=== PATIENT | female | born 1970 | race Caucasian/White ===

== ENCOUNTER 2020-10-11 16:15 | Outpatient (CLI) | payer BC, SELFPAY ==
--- NOTE | ~2020-10-11 | MM_ITS ---
EXAMINATION: MM screening ashlee BI w ruy HISTORY: Screening TECHNIQUE: Craniocaudal and mediolateral oblique 3-D tomosynthesis images were obtained and synthetic 2-D images were generated. CAD analysis was submitted and interpreted. COMPARISON: No prior mammogram is available for comparison at this institution. BREAST PARENCHYMAL COMPOSITION: The breasts are heterogenously dense, which may obscure small masses. FINDINGS: There are bilateral breast asymmetries centrally in both breasts on CC views. No discrete m asses or suspicious calcifications. IMPRESSION: 1. Bilateral breast asymmetries. 2. Comparison to previous outside mammograms recommended to assess stability. BI-RADS Category 0: Incomplete: Needs additional imaging evaluation. Reviewed, dictated and finalized at location A. [employer]
== END 2020-10-11 16:16 | disposition home or self-care (01) ==
LOC: ANHIMG 16:21
PROVIDERS: PCP Physician Assistant; Visit Provider Nurse Practitioner Obstetrics & Gynecology
DX: Z12.31 Encounter for screening mammogram for malignant neoplasm of breast (principal); R92.8 Other abnormal and inconclusive findings on diagnostic imaging of breast
CPT/HCPCS: 77063; 77067

== ENCOUNTER 2020-11-13 13:48 | Outpatient (CLI) | payer BC, SELFPAY ==
--- NOTE | ~2020-11-13 | MMUS_ITS ---
EXAMINATION: MM diagnostic ashlee BI w ruy, US breast RT limited HISTORY: Bilateral breast asymmetries on screening mammogram TECHNIQUE: Additional 3-D tomosynthesis images of the breasts were performed and synthetic 2-D images were generated. CAD analysis was submitted and interpreted. High resolution limited right breast ult rasound was performed. COMPARISON: 10/11/2020, 06/08/2018, 05/08/2017 FINDINGS: MAMMOGRAPHIC FINDINGS: The right breast asymmetry described on recent screening mammogram has a stable appearance with spot compression when compared to prior mammograms. No persistent left breast asymmetry is identified with spot compression. ULTRASOUND: There is no evidence of suspicious solid or cystic mass in the vicinity of the mammographic finding i n question in the right breast. A 4 mm cyst with thin internal septation is present at the 2:00 locat ion 2 cm from the nipple. IMPRESSION: 1. No mammographic or sonographic evidence of malignancy. 2. Recommend routine screening mammography in one year. BI-RADS Category 2: Benign finding(s). Reviewed, dictated and finalized at location A. IMPRESSION: 1. No mammographic or sonographic evidence of malignancy. 2. Recommend routine screening mammography in one year. BI-RADS Category 2: Benign finding(s).
== END 2020-11-13 13:49 | disposition home or self-care (01) ==
PROVIDERS: PCP Physician Assistant; Visit Provider Nurse Practitioner Obstetrics & Gynecology
DX: R92.8 Other abnormal and inconclusive findings on diagnostic imaging of breast (principal)
CPT/HCPCS: 76642; 77062; 77066; G0279

== ENCOUNTER 2021-09-08 11:26 | Emergency (ER) | payer BC, SELFPAY ==
[2021-09-08 11:35] VITALS: BP 155/84; PULSE 85; RESP 16; TEMP 36.3; O2SAT 85
[2021-09-08] MEDS: TETANUS,DIPHTHERIA,AC PERTUSSIS ADULT (0.5 ML) BOOSTRIX IM (12:03)
--- NOTE | 2021-09-08 12:06 | ED.GENADULT ---
HPI - General Adult General Chief complaint: Wound/Laceration Stated complaint: L THUMB LACERATION Source: patient Mode of arrival: ambulatory Limitations: no limitations History of Present Illness HPI narrative: Patient presents for evaluation of a wound to the left thumb that occurred last night. She states that she cut herself on a can that she was opening. She has minimal pain in affected area. She covered the area with a bandage last night and when she took the bandage off this morning she noted bleeding from the affected area. No fever, chills, nausea, vomiting, purulence from the affected area. No loss of ROM. No paresthesias. She is right hand dominant. She is diabetic and has an insulin pump. Her last a1c was 7, per her reports. Date of last tetanus unknown. Related Data Home Medications Medication Instructions Recorded Confirmed dapagliflozin [Farxiga] mg 09/08/21 insulin aspart U-100 09/08/21 Allergies Allergy/AdvReac Type Severity Reaction Status Date / Time bupropion Allergy Unknown Swelling Verified 12/07/08 11:35 Penicillins Allergy Unknown Verified 10/24/10 16:25 Review of Systems Review of Systems: CONSTITUTIONAL: Denies fever, chills, or sweats. EYES: Denies visual changes, redness, or discharge. ENT: Denies rhinorrhea, congestion, sore throat, or otalgia. CARDIOVASCULAR: Denies chest pain, palpitations, or edema. RESPIRATORY: Denies cough or dyspnea. GASTROINTESTINAL: Denies abdominal pain, nausea, vomiting, or diarrhea. GENITOURINARY: Denies dysuria or hematuria. SKIN: Reports wound to left thumb MUSCULOSKELETAL: Denies back pain, joint pain, or myalgia. NEUROLOGIC: Denies headache, numbness, dizziness, or weakness. PSYCHIATRIC: Denies anxiety or depression. [facility] Past Medical History Medical History (Updated 09/08/21 @ 12:15 by NIYAH Giron, RICARDO) Diabetes Surgical History Surgical History No pertinent past surgical history Family History Family History Father Patient's father is in good health Sibling Patient's sister is in good health Mother Family history of diabetes mellitus in first degree relative Family history of renal failure, Onset Age: 59 Grandparent Family history of malignant neoplasm of breast, Onset Age: 70 Diabetes mellitus Social History Social History Alcohol intake: current Substance use: never Gender identity (if verbalized by the patient): Female Sexual Orientation (if Verbalized by the Patient): Straight or Heterosexual Spiritual care concerns: No Exam Narrative: GENERAL: Well-appearing, well-nourished, and in no acute distress. HEAD: Normocephalic, atraumatic. EYES: PERRLA and EOMI. ENT: Nares clear, no rhinorrhea or epistaxis. Mucous membranes moist. Oropharynx without tonsillar hypertrophy exudate or other lesions. Bilateral TMs pearly mckinley nonbulging NECK: Supple. No adenopathy or masses. No carotid bruits or JVD CHEST: Clear to auscultation. No respiratory distress. No wheezes rales or rhonchi HEART: Regular rate and rhythm. No murmur heard. Normal peripheral pulses. ABDOMEN: Soft, nontender, nondistended, normal active bowel sounds. EXTREMITIES: Normal range of motion. No edema. SKIN: Approximately 3 mm superficial linear laceration to distal phalanx of left thumb. This is covered in dry bandage which was removed for examination. There is a scant amount of dried blood noted to distal phalanx without any active bleeding. Skin is warm, dry, no rash. NEURO: No focal deficits. Alert and oriented x3. PSYCH: Normal mood and affect. Course Course Emergency Course: This is a 50-year-old female who presented for evaluation of a wound to the left thumb. Based on time of injury, I advised that it would not be connors to close wound as it cause
[2021-09-08 12:08] VITALS: O2SAT 100
== END 2021-09-08 12:20 | disposition home or self-care (01) ==
PROVIDERS: Emergency Provider Nurse Practitioner; PCP Physician Assistant
DX: S61.012A Laceration without foreign body of left thumb without damage to nail, initial encounter (principal); W45.8XXA Other foreign body or object entering through skin, initial encounter; Z23 Encounter for immunization; E11.9 Type 2 diabetes mellitus without complications; Z79.4 Long term (current) use of insulin
CPT/HCPCS: 90471; 90715; 99213; G0463

== ENCOUNTER 2021-10-19 17:00 | Emergency (ER) | payer BC, SELFPAY ==
[2021-10-19 17:12] VITALS: BP 165/89; PULSE 75; RESP 16; TEMP 36.2; O2SAT 100
--- NOTE | 2021-10-19 17:30 | ED.GENADULT ---
HPI - General Adult General Chief complaint: Upper Respiratory Infection Stated complaint: Sore throat Time Seen by Provider: 10/19/21 17:23 Source: patient and RN notes reviewed Mode of arrival: ambulatory Limitations: no limitations History of Present Illness HPI narrative: Patient presents today complaining of a sore throat x3 days. The sore throat started after she had some severe vomiting and retching episodes for 24 hours. The vomiting resolved after 24 hours and she otherwise does not feel ill. States her sore throat is getting better every day, but decided when she was out to dinner tonight that she wanted to come and get it evaluated. She currently rates her pain 3/10 and has been taking Tylenol with relief. States that she was drinking soda, which caused increased pain. MD complaint: Sore throat Related Data Home Medications Medication Instructions Recorded Confirmed dapagliflozin [Farxiga] mg 09/08/21 insulin aspart U-100 09/08/21 Allergies Allergy/AdvReac Type Severity Reaction Status Date / Time bupropion Allergy Unknown Swelling Verified 12/07/08 11:35 Penicillins Allergy Unknown Verified 10/24/10 16:25 Review of Systems Review of Systems: CONSTITUTIONAL: Denies body aches, fever, chills, or sweats. EYES: Denies visual changes, redness, or discharge. ENT: Denies rhinorrhea, congestion, or otalgia.+ Sore throat CARDIOVASCULAR: Denies chest pain, palpitations, or edema. RESPIRATORY: Denies cough or dyspnea. GASTROINTESTINAL: Denies abdominal pain, nausea, vomiting, or diarrhea. GENITOURINARY: Denies dysuria or hematuria. SKIN: Denies rash, itching, or wounds. MUSCULOSKELETAL: Denies back pain, joint pain, or myalgia. NEUROLOGIC: Denies headache, numbness, tingling, or weakness. PSYCH: Denies depression or anxiety. [facility] Past Medical History Medical History Diabetes Surgical History Surgical History No pertinent past surgical history Family History Family History Father Patient's father is in good health Sibling Patient's sister is in good health Mother Family history of diabetes mellitus in first degree relative Family history of renal failure, Onset Age: 59 Grandparent Family history of malignant neoplasm of breast, Onset Age: 70 Diabetes mellitus Social History Social History Alcohol intake: current Substance use: never Gender identity (if verbalized by the patient): Female Sexual Orientation (if Verbalized by the Patient): Straight or Heterosexual Spiritual care concerns: No Comments At time of signature, I have reviewed and agree with nursing past medical, surgical, social and family history unless otherwise noted. Please see nursing chart for further information. There is no relevant family history pertinent to the presenting complaint Exam Narrative: GENERAL: Well-appearing, well-nourished, and in no acute distress. HEAD: Normocephalic, atraumatic. EYES: EOMI. No redness or drainage. Conjunctivae normal. ENT: Mucous membranes pink and moist. Nares clear. No rhinorrhea. TMs normal bilaterally. Throat faintly erythematous posteriorly without edema or exudate. Uvula midline. NECK: Normal AROM. Supple. No lymphadenopathy. CHEST: No respiratory distress. Clear to auscultation. HEART: Regular rate and rhythm. No murmur appreciated. Normal peripheral pulses. EXTREMITIES: Normal range of motion. No edema. SKIN: Warm, dry, no rash. Capillary refill normal. Normal skin turgor. NEURO: No focal deficits. Alert and oriented x3. Gait steady. PSYCH: Normal affect. No signs of depression or anxiety. Course Course Level of Care: Express Care Visit Vital Signs Vital signs: Vital Signs Temperature 97.1 F L 10/19/21 17:
== END 2021-10-19 17:45 | disposition home or self-care (01) ==
PROVIDERS: Emergency Provider Nurse Practitioner; PCP Physician Assistant
DX: K20.90 Esophagitis, unspecified without bleeding (principal); E11.9 Type 2 diabetes mellitus without complications; Z79.4 Long term (current) use of insulin
CPT/HCPCS: 87081; 87880; 99213; G0463

== ENCOUNTER 2021-12-13 15:01 | Outpatient (CLI) | payer BC, SELFPAY ==
--- NOTE | ~2021-12-13 | MM_ITS ---
EXAMINATION: MM screening ashlee BI w ruy HISTORY: Screening mammogram TECHNIQUE: Craniocaudal and mediolateral oblique 3-D tomosynthesis images were obtained and synthetic 2-D images were generated. CAD analysis was submitted and interpreted. COMPARISON: 11/13/2020 diagnostic bilateral mammogram and limited right breast ultrasound 10/11/2020, 06/18/2018, 05/08/2017 bilateral screening mammogram examinations BREAST PARENCHYMAL COMPOSITION: There are scattered areas of fibroglandular density. FINDINGS: Mild mammographic asymmetry is again noted, stable. There is no evidence of suspicious mass , calcification, or architectural distortion to suggest malignancy in either breast. There has been n o suspicious interval change. IMPRESSION: 1. No mammographic evidence of malignancy. 2. Recommend routine screening mammography in one year. BI-RADS Category 2: Benign finding(s). Reviewed, dictated and finalized at location A.
== END 2021-12-13 15:02 | disposition home or self-care (01) ==
LOC: ANHIMG 15:02
PROVIDERS: PCP Physician Assistant; Visit Provider Nurse Practitioner Obstetrics & Gynecology
DX: Z12.31 Encounter for screening mammogram for malignant neoplasm of breast (principal)
CPT/HCPCS: 77063; 77067

== ENCOUNTER 2022-04-19 13:46 | Inpatient (IN) | payer BC, SELFPAY ==
[2022-04-19] VITALS (18 sets, daily range): BP systolic 90–124; BP diastolic 50–90; PULSE 84–136; RESP 13–26; TEMP 37.1; O2SAT 97–100; BMI 24.3
--- NOTE | ~2022-04-19 | CT_ITS ---
EXAMINATION: CT abdomen pelvis w con DATE: 04/19/2022 16:10 INDICATION: Nausea and vomiting TECHNIQUE: Computed tomography (CT) of the abdomen and pelvis was performed with 100 mL Omnipaque-350 intravenous contrast. Automated exposure control and iterative reconstruction technique were employe d. The dose-length product was 321.16 mGy-cm. COMPARISON: None FINDINGS: Lung bases are clear. Heart size is normal. No pericardial or pleural effusion. Diffuse hepatic steat osis. Gallbladder, spleen, pancreas, bilateral adrenal glands and right kidney are normal. 2.3 simila r exophytic left renal cyst. Bladder, anteverted uterus and bilateral adnexa are unremarkable. Small bowel and appendix are normal. No bowel obstruction. No free intraperitoneal gas or fluid. No patholo gically enlarged abdominal or pelvic lymphadenopathy. Moderate to severe lower lumbar facet osteoarth ritis. Left acetabular bone island. IMPRESSION: 1. No acute intra-abdominal/pelvic process. 2. Hepatic steatosis. Reviewed, dictated and finalized at location A.
[2022-04-19 14:45] LABS: Hematocrit 45.4 % (37.0-47.0); Hemoglobin 14.1 g/dL (12.0-15.0); Mean Corpuscular HGB Conc 31.1 g/dl (32-36); Mean Corpuscular Hemoglobin 32.3 pg (26-34); Mean Corpuscular Volume 104.1 fl (80-100); Platelet Count Result 223 k/mm3 (150-375); Red Blood Count 4.36 M/mm3 (4.2-5.4); Red Cell Distribution Width 13.5 % (11.5-14.5); White Blood Count 26.2 K/mm3 (4.5-10.0)
--- NOTE | 2022-04-19 14:54 | PC.NURSE ---
Dr. Moore at bedside to assess pt.
[2022-04-19 15:00] LABS: Appearance Urine Clear (Clear); Bilirubin Urine 1+ (Negative); Blood Urine Negative (Negative); Color Urine Yellow (Yellow); Glucose Urine UA 2+ mg/dL (Negative); Ketones Urine 4+ mg/dL (Negative); Leukocyte Esterase Ur Negative LEU/UL (Negative); Nitrate Urine Negative (Negative); Protein Urine Trace mg/dL (Negative); Specific Grav Ur 1.025 (1.001-1.035); Urobilinogen Urine 0.2 mg/dL (<2.0); pH Urine 5.5 (5.0-9.0)
[2022-04-19 15:03] LABS: Mucus Urine Rare /lpf; RBC Urine 0-2 /hpf (0-2); Squamous Epithelial Cell Urine Rare /hpf (Few); WBC Urine 0-3 /hpf
[2022-04-19 15:04] LABS: Add Urine Microscopic? YES
[2022-04-19] MEDS: ONDANSETRON INJ 4 MG/2 ML VIAL IV PUSH (15:07)
[2022-04-19] MEDS: SODIUM CHLORIDE 0.9% IV 1,000 ML 999 ML IV CONT ×3 (15:08→15:29)
[2022-04-19 15:11] LABS: Alanine Aminotransferase 27 U/L (6-35); Alkaline Phosphatase 93 U/L (38-126); Aspartate Amino Transferase 45 U/L (14-36); Bilirubin,Total 0.8 mg/dL (0.2-1.3); Blood Urea Nitrogen 22 mg/dL (7-17); Calcium 9.6 mg/dL (8.4-10.2); Carbon Dioxide < 5 mmol/L (22-30); Chloride 94 mmol/L (98-107); Estimated CRCL calculation 48 ml/min; Estimated Glomerular Filt Rate 52; Glucose 545 mg/dL (65-110); Lipase 39 U/L (23-300); Sodium 133 mmol/L (137-145)
[2022-04-19 15:27] LABS: SARS-CoV-2 RNA PCR Negative
[2022-04-19] MEDS: INSULIN HUMAN REGULAR (*BKC) 100 UNITS/ML 10 UNITS IV PUSH (15:30)
[2022-04-19 15:31] LABS: Band Neutrophils Percent 1 % (0-6); Lymphocytes Absolute Manual 1.04 K/mm3 (1.1-4.5); Monocytes Absolute Manual 0.52 K/mm3 (0.1-0.90); Monocytes Percent Manual 2 % (3-9); Neutrophils Absolute Manual 24.62 K/mm3 (1.7-7.2); Neutrophils Percent Manual 93 % (46-73); Platelet Estimate Adequate (Adequate); Total Cells Counted 100
--- NOTE | 2022-04-19 15:37 | PC.NURSE ---
RT at bedside to obtain blood gas.
[2022-04-19 15:39] LABS: Alveolar/Arterial O2 Gradient 71.8 mmHg; Base Excess ABG -21.5 mEq/l (+/-2.0); Carboxyhemoglobin 0.4 % THb (0-2.0); Fractional Inspired Oxygen 21 %; HCO3 ABG 7.3 mEq/l (22.0-26.0); Methemoglobin ABG 0.4 %THb (0-1.5); Oxygen Content ABG 13.4 %vol (16.0-22.0); PCO2 ABG 25.9 mmHg (35.0-45.0); PO2 FiO2 Ratio Arterial Blood 2.23 %; Reduced Hemoglobin 29.9 %THb (0-5.0); Total Hemoglobin 13.8 g/dL (12.0-18.0)
[2022-04-19 15:49] LABS: Oxygen Saturation ABG 96.3 % (95.0-100.0)
[2022-04-19 15:50] LABS: pH ABG 7.079 (7.350-7.450)
[2022-04-19 15:51] LABS: Device ROOM AIR; Modified Allen's Test Pass; Site Drawn RIGHT RADIAL
--- NOTE | 2022-04-19 16:03 | ED.GENADULT ---
HPI - General Adult General Chief complaint: Nausea/Vomiting/Diarrhea Stated complaint: n/v/d high blood sugar Time Seen by Provider: 04/19/22 14:27 History of Present Illness HPI narrative: Patient is a 51-year-old female who presents ER with nausea and vomiting and diarrhea. Associated with elevated blood sugars as well. Symptoms began yesterday evening. Had a possible COVID exposure 1 week ago. No fevers or chills. She has felt flushed. No chest pain or chest pressure. Type I diabetic who has a insulin pump. Related Data Home Medications Medication Instructions Recorded Confirmed dapagliflozin 10 mg tablet mg 09/08/21 (Farxiga) insulin aspart U-100 100 unit/mL 09/08/21 subcutaneous solution Allergies Allergy/AdvReac Type Severity Reaction Status Date / Time bupropion Allergy Unknown Swelling Verified 12/07/08 11:35 Penicillins Allergy Unknown Verified 10/24/10 16:25 PMFSH Past Medical History Medical History Diabetes Surgical History Surgical History No pertinent past surgical history Family History Family History Father Patient's father is in good health Sibling Patient's sister is in good health Mother Family history of diabetes mellitus in first degree relative Family history of renal failure, Onset Age: 59 Grandparent Family history of malignant neoplasm of breast, Onset Age: 70 Diabetes mellitus Social History Social History Years smoked: 10 Smoking status: Current some day smoker Tobacco type: cigarettes Alcohol intake: current Substance use: never Gender identity (if verbalized by the patient): Female Sexual Orientation (if Verbalized by the Patient): Straight or Heterosexual Spiritual care concerns: No Exam Narrative: GENERAL: Ill-appearing, well-nourished, and in mild distress. HEAD: Normocephalic, atraumatic. EYES: PERRL and EOMI. NECK: Supple. CHEST: Clear to auscultation. No respiratory distress. HEART: Tachycardic and regular. Normal peripheral pulses. ABDOMEN: Soft, nontender, nondistended. EXTREMITIES: Normal range of motion. No edema. SKIN: Warm, dry, no rash. NEURO: Alert and oriented x3. PSYCH: Normal mood and affect. Course Course Emergency Course: Patient and family informed of results. Admit to the hospitalist service and the ICU is consulting. Patient be started on an insulin drip. Vital Signs Vital signs: Vital Signs Temperature 98.7 F 04/19/22 13:59 Pulse Rate 120 H 04/19/22 13:59 Respiratory Rate 20 04/19/22 13:59 Blood Pressure 124/79 04/19/22 13:59 Pulse Oximetry 97 04/19/22 13:59 Oxygen Delivery Room Air 04/19/22 13:59 Temperature 98.7 F 04/19/22 13:59 Pulse Rate 136 H 04/19/22 16:44 Respiratory Rate 23 H 04/19/22 16:44 Blood Pressure 120/84 04/19/22 15:14 Pulse Oximetry 99 04/19/22 15:49 Oxygen Delivery Room Air 04/19/22 13:59 Medical Decision Making Vital Signs Vital Signs: Vital Signs Temperature 98.7 F 04/19/22 13:59 Pulse Rate 120 H 04/19/22 13:59 Respiratory Rate 20 04/19/22 13:59 Blood Pressure 124/79 04/19/22 13:59 Pulse Oximetry 97 04/19/22 13:59 Oxygen Delivery Room Air 04/19/22 13:59 Temperature 98.7 F 04/19/22 13:59 Pulse Rate 136 H 04/19/22 16:44 Respiratory Rate 23 H 04/19/22 16:44 Blood Pressure 120/84 04/19/22 15:14 Pulse Oximetry 99 04/19/22 15:49 Oxygen Delivery Room Air 04/19/22 13:59 Lab Data Result diagrams: 04/19/22 14:32 04/19/22 14:32 Labs: Lab Results 04/19/22 04/19/22 04/19/22 Range/Units 14:32 14:32 14:32 WBC 26.2 H (4.5-10.0) K/mm3 RBC 4.36 (4.2-5.4) M/mm3 Hgb 14.1 (12.0-15.0) g/dL Hct 45.4 (37
[2022-04-19 16:09] LABS: Lactic Acid Reflex 3.8 mmol/L (0.7-2.0)
[2022-04-19 16:28] LABS: Glucose Point of Care 461 mg/dl (65-105)
[2022-04-19] MEDS: SODIUM CHLORIDE 0.9% IV 1,000 ML 150 ML IV CONT (17:02)
[2022-04-19] MEDS: INSULIN HUMAN REGULAR (*BKC) 100 UNITS in SODIUM CHLORIDE 0.9% IV 99 ML 8 UNITS IV CONT (17:19)
--- NOTE | 2022-04-19 17:26 | PC.NURSE ---
Received a call from Miroi, Ruth, that BMP specimen collected was not enough. Per Kristyn RN, ICU was going to start another line and get it when she went upstairs. notified as well.
[2022-04-19 17:35] LABS: Glucose Point of Care 309 mg/dl (65-105)
--- NOTE | 2022-04-19 17:58 | ADMGEN ---
This patient, Laurel Avila, was admitted to Intensive Care Unit-4. Patient/family oriented to hospital policies and general routines including ID bracelet, bed and alarms, visiting hours, pain management, procedures, bathroom and other care routines, personal items, smoking policy, room service/diet, and visiting hours. Information on how to activate the Rapid Response Team has been discussed. Patient/Family are encouraged to report perceived risks to care and to ask questions if they do not understand what they are told or what they should do.
[2022-04-19 18:20] LABS: Glucose Point of Care 329 mg/dl (65-105)
--- NOTE | 2022-04-19 18:36 | PM.IMHP ---
H&P: HPI History of Present Illness Date/Time: 04/19/22 18:36 Chief Complaint: High blood sugar with nausea and vomiting Narrative: This is a 51-year-old female patient who is insulin-dependent diabetes type 1. The patient has insulin pump that she manages on her own. The patient stated she has never been in DKA. She stated that she had drinks some wine and was emotionally upset and her pump kept reading high and she kept bolusing herself with insulin without any change in the blood sugars. The patient stated she had some nausea and vomiting symptoms began yesterday. Patient went to after recently and felt that she may have gotten exposed to COVID. No fever or chills. Her white count is noted to be 26.2. MCV is 104.1. PH is 7.079. CO2 was 25.9. Bicarb 7.3. Potassium was initially 6.0 and is now normal at 4.6. Glucose was initially 545 now down to 273. Patient's lactic was initially 3.8. She was negative for COVID and she was positive for ketones in her urine. The patient was given IV fluids and started on an insulin drip and admitted to ICU for inpatient status on the date of service of 04/19/2022. Review of Systems Review of Systems: See HPI All systems reviewed & are unremarkable except as noted in HPI and below Constitutional: Constitutional: Reports as per HPI and Reports no additional constitutional complaints Eyes: Eyes: Reports as per HPI and Reports no additional eye complaints ENT: Reports system reviewed and no additional complaints, except as documented and Reports Normal hearing present Cardiovascular: Cardiovascular: Reports no additional cardiovascular complaints Respiratory: Respiratory: Reports no additional respiratory complaints and Reports no additional respiratory complaints Gastrointestinal: Gastrointestinal: Reports as per HPI and Reports no additional gastrointestinal complaints Musculoskeletal: Musculoskeletal: Reports no additional musculoskeletal complaints Integumentary/Breasts: Skin/Breast: Reports system reviewed and no additional complaints, except as docu and Reports as per HPI Neurologic: Reports system reviewed and no additional complaints, except as documented, Reports as per HPI and Reports Normal hearing present Psychiatric: Psychiatric: Reports no additional psychiatric complaints and Reports as per HPI Endocrine: Endocrine: Reports no additional endocrine complaints Hematologic/Lymphatic: Hematologic/Lymphatic: Reports no additional hematologic/lymphatic complaints Allergic/Immunologic: Allergic/Immunologic: Reports no additional allergic/immunologic complaints [facility] Past Medical History Medical History (Updated 04/19/22 @ 20:21 by Juany Sloan NP) Depression with anxiety Diabetes Surgical History Surgical History (Updated 04/19/22 @ 20:18 by Juany Sloan NP) History of endometrial ablation Family History Family History Father Patient's father is in good health Sibling Patient's sister is in good health Mother Family history of diabetes mellitus in first degree relative Family history of renal failure, Onset Age: 59 Grandparent Family history of malignant neoplasm of breast, Onset Age: 70 Diabetes mellitus Social History Social History (Updated 04/19/22 @ 20:12 by Juany Sloan NP) Social History: 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 She has 2 children. She still continues to smoke an occasional cigarette. She does drink wine occasionally. No marijuana or illicit drugs. 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 Code status full code Years smoked: 10 Smoking status: Current some day smoker Tobacco type: cigarettes Alcohol intake: never Substance use: never Substance use type: does not use Gender identity (if verbalized by the patient): Female Sexual Orientation (if Verbalized by the Patient): Straight or
[2022-04-19 18:54] LABS: Reflex Lactic Acid Yes or No Add Lactic
[2022-04-19 19:05] LABS: Glucose Point of Care 244 mg/dl (65-105)
[2022-04-19 19:16] LABS: Anion Gap 24 mmol/L (8-16); Blood Urea Nitrogen 22 mg/dL (7-17); Calcium 8.4 mg/dL (8.4-10.2); Carbon Dioxide 7 mmol/L (22-30); Chloride 104 mmol/L (98-107); Estimated CRCL calculation 50 ml/min; Estimated Glomerular Filt Rate 52; Glucose 273 mg/dL (65-110); Potassium 4.6 mmol/L (3.4-5.0); Sodium 135 mmol/L (137-145)
[2022-04-19 20:24] LABS: Glucose Point of Care 213 mg/dl (65-105)
[2022-04-19] MEDS: KCL 20 MEQ/D5/0.45% SOD CHL 1,000 ML 150 ML IV CONT (20:26)
[2022-04-19 20:45] LABS: Anion Gap 17 mmol/L (8-16); Blood Urea Nitrogen 21 mg/dL (7-17); Calcium 8.3 mg/dL (8.4-10.2); Carbon Dioxide 11 mmol/L (22-30); Chloride 107 mmol/L (98-107); Estimated CRCL calculation 54 ml/min; Estimated Glomerular Filt Rate 58; Glucose 181 mg/dL (65-110); Lactic Acid 1.2 mmol/L (0.7-2.0); Potassium 4.2 mmol/L (3.4-5.0); Sodium 135 mmol/L (137-145)
[2022-04-19 21:51] LABS: Glucose Point of Care 208 mg/dl (65-105)
[2022-04-19 23:22] LABS: Glucose Point of Care 196 mg/dl (65-105)
[2022-04-20] VITALS (11 sets, daily range): BP systolic 107–169; BP diastolic 52–87; PULSE 81–104; RESP 15–21; TEMP 36.3–37.1; O2SAT 98–100
[2022-04-20 01:20] LABS: Anion Gap 8 mmol/L (8-16); Blood Urea Nitrogen 21 mg/dL (7-17); Calcium 8.7 mg/dL (8.4-10.2); Carbon Dioxide 17 mmol/L (22-30); Chloride 108 mmol/L (98-107); Estimated CRCL calculation 60 ml/min; Estimated Glomerular Filt Rate > 60; Glucose 139 mg/dL (65-110); Potassium 4.1 mmol/L (3.4-5.0); Sodium 133 mmol/L (137-145)
[2022-04-20 01:46] LABS: Glucose Point of Care 136 mg/dl (65-105)
[2022-04-20 02:50] LABS: Glucose Point of Care 107 mg/dl (65-105)
[2022-04-20] MEDS: KCL 20 MEQ/D5/0.45% SOD CHL 1,000 ML 150 ML IV CONT (02:53)
[2022-04-20 04:17] LABS: Glucose Point of Care 101 mg/dl (65-105)
[2022-04-20 05:07] LABS: Basophils Absolute Auto 0.1 K/mm3 (0.0-0.1); Basophils Percent Auto 0.2 % (0.2-1.2); Eosinophils Percent Auto 0.2 % (0-4.4); Hematocrit 39.7 % (37.0-47.0); Immature Granulocyte Absolute 0.15 K/mm3 (0.00-0.031); Immature Granulocyte Percent A 0.6 % (0-0.5); Lymphocytes Absolute Auto 1.99 K/mm3 (0.9-3.2); Lymphocytes Percent Auto 7.8 % (18.3-44.2); Mean Corpuscular HGB Conc 32.7 g/dl (32-36); Mean Corpuscular Hemoglobin 32.4 pg (26-34); Mean Platelet Volume 10.8 fl (7.4-10.4); Monocytes Percent Auto 7.9 % (2.6-8.5); Neutrophils Absolute Auto 21.4 K/mm3 (1.3-6.7); Neutrophils Percent Auto 83.3 % (45.5-73.1); Platelet Count Result 168 k/mm3 (150-375); Red Blood Count 4.01 M/mm3 (4.2-5.4); Red Cell Distribution Width 13.5 % (11.5-14.5); White Blood Count 25.7 K/mm3 (4.5-10.0)
[2022-04-20 05:16] LABS: Glucose Point of Care 79 mg/dl (65-105)
[2022-04-20 05:24] LABS: Anion Gap 8 mmol/L (8-16); Blood Urea Nitrogen 20 mg/dL (7-17); Calcium 8.7 mg/dL (8.4-10.2); Carbon Dioxide 19 mmol/L (22-30); Chloride 107 mmol/L (98-107); Estimated CRCL calculation 60 ml/min; Estimated Glomerular Filt Rate > 60; Glucose 82 mg/dL (65-110); Lactic Acid Reflex 1.1 mmol/L (0.7-2.0); Potassium 4.2 mmol/L (3.4-5.0); Sodium 134 mmol/L (137-145)
[2022-04-20 05:26] LABS: Hemoglobin A1C 6.1 % (<5.7)
[2022-04-20 06:41] LABS: Glucose Point of Care 133 mg/dl (65-105)
[2022-04-20 07:51] LABS: Glucose Point of Care 168 mg/dl (65-105)
--- NOTE | 2022-04-20 08:38 | WPDCNINT ---
Assessment and Plan Assessment and plan (1) DKA (diabetic ketoacidosis): Code(s): E11.10 - Type 2 diabetes mellitus with ketoacidosis without coma Status: Acute Assessment and Plan: Patient admitted with high blood sugar positive ketones and positive beta hydroxybutyrate Although WBC was elevated which is likely secondary to stress reaction. Chest x-ray UA negative and patient afebrile hence infection was not suspected and patient is not on any antibiotics Patient was given IVF bolus and started infusion Currently patient is on Insulin infusion and Q1H glucose monitoring Serial labs show that her anion gap has closed and patient's symptoms have resolved I will transition patient to subcutaneous insulin including Lantus, with meal insulin and sliding scale Wean off IV fluids Advance diet Resume metformin community relations manager has been consulted (2) Depression with anxiety: Code(s): F41.8 - Other specified anxiety disorders Status: Chronic Assessment and Plan: Continue escitalopram (3) Hyperkalemia: Code(s): E87.5 - Hyperkalemia Status: Acute Assessment and Plan: Likely secondary to DKA and resolved with treatment with IV fluids and insulin Renal function is normal Plan DVT prophylaxis -SCDs, patient is ambulating Nutrition -diabetic diet Code Status - Full Code Transfer out of ICU today [facility] Consult Note Consult date: 04/20/22 Reason for consult: DKA HPI: Laurel Avila is a 51 year old female with insulin-dependent diabetes who presented yesterday with chief complaint of nausea vomiting high blood sugars and diarrhea. Patient who has insulin pump states that she kept on seeing high blood sugars on her insulin pump and kept on giving herself bolus insulin without any benefit. She suspect that her wound pump was malfunctioning as she had a new pump recently. She states she started having nausea and vomiting. Had multiple episodes of vomiting and after that she started having some sore throat. He denied any blood in the vomitus. She had some diarrhea but again no blood in the diarrhea. She denied any abdominal pain. Patient denies fever, chest pain, shortness of breath, cough, abdominal pain, headache or constipation. In ED patient was found to be in DKA and was given IV fluid bolus and was started on IV insulin infusion and IV fluids. She was admitted to ICU for further evaluation management. This morning patient states that she is feeling much better and denies any complaints. Her symptoms appears to have resolved. All other systems were reviewed and were negative Review of Systems Review of Systems: All systems reviewed & are unremarkable except as noted in HPI and below (HPI) PMFSH Past Medical History Medical History Depression with anxiety Diabetes Surgical History Surgical History History of endometrial ablation Family History Family History Father Patient's father is in good health Sibling Patient's sister is in good health Mother Family history of diabetes mellitus in first degree relative Family history of renal failure, Onset Age: 59 Grandparent Family history of malignant neoplasm of breast, Onset Age: 70 Diabetes mellitus Social History Social History Social History: 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 She has 2 children. She still continues to smoke an occasional cigarette. She does drink wine occasionally. No marijuana or illicit drugs. Her is a durable power gunstock spray unit adjuster for healthcare. Code status full code Years smoked: 10 Smoking status: Current some day smoker Tobacco type: cigarettes Alcohol intake: never Substance use: never Substance use type: does not use
[2022-04-20] MEDS: INSULIN GLARGINE (*BKC) 100 UNITS/ML 20 UNITS SUB-Q (09:04)
[2022-04-20 09:11] LABS: Glucose Point of Care 143 mg/dl (65-105)
[2022-04-20 10:11] LABS: Glucose Point of Care 155 mg/dl (65-105)
[2022-04-20] MEDS: INSULIN ASPART (*BKC) 100 UNITS/ML SUB-Q ×2 (13:45→16:59)
[2022-04-20] MEDS: ENOXAPARIN 40 MG/0.4 ML SYRINGE SUB-Q (13:47)
[2022-04-20] MEDS: ESCITALOPRAM OXALATE 10 MG TABLET PO (13:47)
[2022-04-20 13:51] LABS: Glucose Point of Care 182 mg/dl (65-105)
[2022-04-20] MEDS: NAPROXEN SODIUM 220 MG TABLET PO (14:59)
--- NOTE | 2022-04-20 15:22 | PM.IMPN ---
Progress Note: A&P Assessment and Plan (1) DKA (diabetic ketoacidosis): Code(s): E11.10 - Type 2 diabetes mellitus with ketoacidosis without coma Status: Acute Assessment and Plan: Patient admitted with high blood sugar positive ketones and positive beta hydroxybutyrate WBC count was quite elevated possibly stress reaction. NoSigns of underlying infection except for some gastroenteritis currently abdomen is soft and looks benign. Recheck labs in a.m. will get blood cultures x2 Patient was treated with IV fluid infusion and insulin infusion Severe labs with gap close and symptoms resolved Transition to Lantus and NovoLog Advance diet Resume metformin religious educator has been consulted (2) Depression with anxiety: Code(s): F41.8 - Other specified anxiety disorders Status: Chronic Assessment and Plan: Continue escitalopram (3) Hyperkalemia: Code(s): E87.5 - Hyperkalemia Status: Acute Assessment and Plan: Likely secondary to DKA and resolved with treatment with IV fluids and insulin Renal function is normal (4) Leukocytosis: Code(s): D72.829 - Elevated white blood cell count, unspecified Status: Acute Assessment and Plan: Blood culture x2 today Plan DVT prophylaxis -Lovenox Nutrition -diabetic diet Code Status - Full Code Subjective Date/time seen: 04/20/22 15:22 Interval history: HPI:This is a 51-year-old female patient who is insulin-dependent diabetes type 1.? The patient has insulin pump that she manages on her own.? The patient stated she has never been in DKA.? She stated that she had drinks some wine and was emotionally upset and her pump kept reading high and she kept bolusing herself with insulin without any change in the blood sugars.? The patient stated she had some nausea and vomiting symptoms began yesterday.? Patient went to after recently and felt that she may have gotten exposed to COVID.? No fever or? chills.? Her white count is noted to be 26.2.? MCV is 104.1.? PH is 7.079.? CO2 was 25.9.? Bicarb 7.3.? Potassium was initially 6.0 and is now normal at 4.6.? Glucose was initially 545 now down to 273.? Patient's lactic was initially 3.8.? She was negative for COVID and she was positive for ketones in her urine.? The patient was given IV fluids and started on an insulin drip and admitted to ICU for inpatient status on the date of service of 04/19/2022. 04/20/2022 DKA resolved. Back to Lantus and Humalog. On insulin pump since past few years now. Unsure if Bumpus failed. Been stressed lately. Had some nausea and vomiting along with explosive diarrhea prior to the symptoms started. Elevated WBC count COVID negative. Review of Systems Review of Systems: All systems reviewed & are unremarkable except as noted in HPI and below (HPI) Exam Narrative: General: Pt is alert awake and in NAD Lungs/Chest: Trachea central Clear BS B/L, No crackles or wheezing. Cardiac: RRR. Normal S1 S2. No murmurs Circulation: Pedal pulses are intact and symmetrical. Abdomen: Normal bowel sounds.. Soft. NT. ND. Extremities: No clubbing, cyanosis or edema. Warm : Fletcher in place Neurologic: Follows commands. Moves all 4 extremities PERRL Skin: No Rash Objective Data Vital Signs Vital Signs: Vital Signs - 24 hr 04/19/22 15:49 04/19/22 16:44 04/19/22 18:00 Temperature Pulse Rate 84 136 H 117 H Respiratory Rate 16 23 H Blood Pressure Pulse Oximetry 99 Oxygen Delivery 04/19/22 18:44 04/19/22 17:51 04/19/22 17:52 Temperature Pulse Rate 118 H 117 H Respiratory Rate 20 23 H Blood Pressure 114/50 L Pulse Oximetry 100 100 Oxygen Delivery Room Air 04/19/22 18:00 04/19/22 18:01 04/19/22 18:15 Temperature Pulse Rate 122 H 119 H 115 H Respiratory Rate 13 16 26 H Blood Pressure 118/50 L Pulse Oximetry 100 100 100 Oxygen Delivery 04/19/22 18:16 04/19/22 18:30 04/19/22 18:31 Temperature
--- NOTE | 2022-04-20 15:40 | PC.NURSE ---
This patient, Laurel Avila, was received from ICU-4 on 04/20/22 at 15. Patient/family oriented to unit policies and routines
--- NOTE | 2022-04-20 15:41 | PC.NURSE ---
This patient, Laurel Avila, was transferred to [[id number] ] on 04/20/22 at 1541. Personal belongings sent with patient. Report given to [Trudy MCGOWAN ]. Appropriate documentation sent with patient.
[2022-04-20 16:10] LABS: Glucose Point of Care 151 mg/dl (65-105)
[2022-04-20 22:19] LABS: Glucose Point of Care 191 mg/dl (65-105)
[2022-04-21 06:01] LABS: Basophils Absolute Auto 0.1 K/mm3 (0.0-0.1); Basophils Percent Auto 0.4 % (0.2-1.2); Eosinophils Absolute Auto 0.1 K/mm3 (0-0.3); Hematocrit 37.8 % (37.0-47.0); Hemoglobin 12.3 g/dL (12.0-15.0); Immature Granulocyte Absolute 0.03 K/mm3 (0.00-0.031); Immature Granulocyte Percent A 0.2 % (0-0.5); Immature Platelet Fraction Pct 7.9 % (0.9-11.2); Lymphocytes Absolute Auto 2.38 K/mm3 (0.9-3.2); Mean Corpuscular HGB Conc 32.5 g/dl (32-36); Mean Corpuscular Hemoglobin 32.4 pg (26-34); Mean Corpuscular Volume 99.5 fl (80-100); Monocytes Absolute Auto 0.7 K/mm3 (0.1-0.6); Monocytes Percent Auto 5.3 % (2.6-8.5); Neutrophils Absolute Auto 9.3 K/mm3 (1.3-6.7); Neutrophils Percent Auto 74.1 % (45.5-73.1); Platelet Count Result 140 k/mm3 (150-375); Red Cell Distribution Width 13.8 % (11.5-14.5); White Blood Count 12.5 K/mm3 (4.5-10.0)
[2022-04-21 06:19] LABS: Alanine Aminotransferase 53 U/L (6-35); Alkaline Phosphatase 65 U/L (38-126); Anion Gap 8 mmol/L (8-16); Aspartate Amino Transferase 88 U/L (14-36); Bilirubin,Total 0.8 mg/dL (0.2-1.3); Blood Urea Nitrogen 11 mg/dL (7-17); Calcium 8.5 mg/dL (8.4-10.2); Carbon Dioxide 20 mmol/L (22-30); Chloride 106 mmol/L (98-107); Estimated CRCL calculation 76 ml/min; Estimated Glomerular Filt Rate > 60; Glucose 160 mg/dL (65-110); Magnesium 1.9 mg/dL (1.6-2.3); Potassium 4.2 mmol/L (3.4-5.0); Sodium 134 mmol/L (137-145)
[2022-04-21 06:22] VITALS: BP 154/81; PULSE 73; RESP 20; TEMP 36.1; O2SAT 100
[2022-04-21 08:05] LABS: Glucose Point of Care 241 mg/dl (65-105)
[2022-04-21] MEDS: INSULIN ASPART (*BKC) 100 UNITS/ML SUB-Q ×3 (08:09→11:28)
[2022-04-21] MEDS: metFORMIN HCL 500 MG TABLET PO (08:10)
[2022-04-21] MEDS: ESCITALOPRAM OXALATE 10 MG TABLET PO (08:11)
[2022-04-21] MEDS: ENOXAPARIN 40 MG/0.4 ML SYRINGE SUB-Q (08:11)
[2022-04-21] MEDS: INSULIN GLARGINE (*BKC) 100 UNITS/ML 20 UNITS SUB-Q (08:13)
[2022-04-21] MEDS: NAPROXEN SODIUM 220 MG TABLET PO (08:14)
[2022-04-21 10:21] LABS: Appearance Urine Cloudy (Clear); Bilirubin Urine 2+ (Negative); Blood Urine 2+ (Negative); Color Urine Yellow (Yellow); Glucose Urine UA 2+ mg/dL (Negative); Ketones Urine 4+ mg/dL (Negative); Leukocyte Esterase Ur 1+ LEU/UL (NEGATIVE); Nitrate Urine Negative (Negative); Protein Urine Trace mg/dL (Negative); Specific Grav Ur 1.025 (1.001-1.035)
[2022-04-21 10:28] LABS: Add Urine Microscopic? YES; Bacteria Urine Trace /hpf; Mucus Urine Rare /lpf; Squamous Epithelial Cell Urine Many /hpf (Few); WBC Urine 51-75 /hpf (0-3)
--- NOTE | 2022-04-21 10:55 | PM.DS ---
DS: Admitting Diagnosis Discharge Date 04/21/2022 Admitting Diagnosis DKA DS: Discharge Diagnosis Discharge Diagnosis (1) DKA (diabetic ketoacidosis): Code(s): E11.10 - Type 2 diabetes mellitus with ketoacidosis without coma Status: Acute (2) Depression with anxiety: Code(s): F41.8 - Other specified anxiety disorders Status: Chronic (3) Hyperkalemia: Code(s): E87.5 - Hyperkalemia Status: Acute (4) Leukocytosis: Code(s): D72.829 - Elevated white blood cell count, unspecified Status: Acute DS: Summary Hospital Course Reason for hospitalization: HPI:This is a 51-year-old female patient who is insulin-dependent diabetes type 1.? The patient has insulin pump that she manages on her own.? The patient stated she has never been in DKA.? She stated that she had drinks some wine and was emotionally upset and her pump kept reading high and she kept bolusing herself with insulin without any change in the blood sugars.? The patient stated she had some nausea and vomiting symptoms began yesterday.? Patient went to after recently and felt that she may have gotten exposed to COVID.? No fever or? chills.? Her white count is noted to be 26.2.? MCV is 104.1.? PH is 7.079.? CO2 was 25.9.? Bicarb 7.3.? Potassium was initially 6.0 and is now normal at 4.6.? Glucose was initially 545 now down to 273.? Patient's lactic was initially 3.8.? She was negative for COVID and she was positive for ketones in her urine.? The patient was given IV fluids and started on an insulin drip and admitted to ICU for inpatient status on the date of service of 04/19/2022. Hospital Course: # DKA Patient admitted with high blood sugar positive ketones and positive beta hydroxybutyrate WBC count was quite elevated possibly stress reaction.? NoSigns of underlying infection except for some gastroenteritis currently abdomen is soft and looks benign.?CT abdomen pelvis was also negative blood culture x2 was obtained which remains negative growth to date Patient was treated with IV fluid infusion and insulin infusion repeat labs with gap close and symptoms resolved Transition to Lantus and NovoLog Advance diet Resume metformin also on for she go which will be held until further evaluation by her fiscal manager. Due to DKA as this will also increase the risk of DKA. early childhood educator aide has been consulted Unclear any other reason for DKA as her insulin pump was in place while she had hyperglycemia. ? pump failure Will transition to Lantus and NovoLog at discharge and have her follow-up with fiscal manager to evaluate the insulin pump # depression with anxiety: Continue escitalopram # hyperkalemia Likely secondary to DKA and resolved with treatment with IV fluids and insulin Renal function is normal # leukocytosis: Blood culture x2 Obtained which remained negative Was 26,000 on admission. Down to 12,000 without any antibiotic Urinalysis was negative no respiratory symptoms. CT abdomen and pelvis was negative. Repeat UA due to urinary symptoms was done which showed features of urinary tract infection Will start on Bactrim and give for 5 days total duration. # DVT prophylaxis Lovenox # nutrition diabetic diet # code status full code Time Spent with Patient Time attestation: Total time spent providing and/or coordinating discharge services: 40 minutes Exam Narrative: General: Pt is alert awake and in NAD Lungs/Chest: Trachea central Clear BS B/L, No crackles or wheezing. Cardiac: RRR. Normal S1 S2. No murmurs Circulation: Pedal pulses are intact and symmetrical. Abdomen: Normal bowel sounds.. Soft. NT. ND. Extremities: No clubbing, cyanosis or edema. Warm : Fletcher in place Neurologic: Follows commands. Moves all 4 extremities PERRL Skin: No Rash DS: Data Data Completed and Pending Labs on day of discharge: Labs from last 24 hours 04/21/22 04/21/22 04/21/22 10:07 10:02 08:00 WBC
[2022-04-21 11:26] LABS: Glucose Point of Care 177 mg/dl (65-105)
[2022-04-21] MEDS: SULFAMETHOXAZOLE/TRIMETHOPRIM 800/160 MG DS TABLET 1 TAB PO (11:28)
--- NOTE | 2022-04-21 13:32 | PC.NURSE ---
Patient called and has no test strips for her freestyle lite machine. Dr Patricio notified. Test strips ordered
== END 2022-04-21 11:40 | disposition home or self-care (01) | DRG 638 ==
LOC: ANHED 14:46 → ANHICU 17:14 → ANH3MEDSUR 04-20 17:08
PROVIDERS: Nurse Practitioner; Admitting Provider Internal Medicine; Emergency Provider Emergency Medicine; PCP Physician Assistant; Visit Provider Internal Medicine
DX: E10.10 Type 1 diabetes mellitus with ketoacidosis without coma (principal); T85.694A Other mechanical complication of insulin pump, initial encounter; Z20.822 Contact with and (suspected) exposure to COVID-19; D72.829 Elevated white blood cell count, unspecified; E87.5 Hyperkalemia; F41.8 Other specified anxiety disorders; F17.210 Nicotine dependence, cigarettes, uncomplicated; K52.9 Noninfective gastroenteritis and colitis, unspecified; Z79.84 Long term (current) use of oral hypoglycemic drugs; Z96.41 Presence of insulin pump (external) (internal); Z88.0 Allergy status to penicillin
CPT/HCPCS: 36415; 36600; 74177; 80048; 80053; 81001; 81025; 82375; 82805; 82948; 83036; 83050; 83605; 83690; 83735; 85025; 85055; 87040; 87081; 87880; 96361; 96374; 96375; 99285; A9270; C9803; J1650; J1815; J2405; J3480; J7030; Q9967; U0003; U0005

== ENCOUNTER 2023-04-15 09:28 | Outpatient (CLI) | payer OTHER, SELFPAY ==
--- NOTE | ~2023-04-15 | MM_ITS ---
EXAMINATION: MM screening ashlee BI w ruy HISTORY: Screening mammogram TECHNIQUE: Craniocaudal and mediolateral oblique 3-D tomosynthesis images were obtained and synthetic 2-D images were generated. CAD analysis was submitted and interpreted. COMPARISON: December 13, 2021 bilateral screening mammogram 11/13/2020 diagnostic bilateral mammogram and limited right breast ultrasound examination October 11, 2020 bilateral screening mammogram BREAST PARENCHYMAL COMPOSITION: There are scattered areas of fibroglandular density. FINDINGS: Stable mild fibroglandular asymmetry since October 11, 2020. There is no evidence of suspi cious mass, calcification, or architectural distortion to suggest malignancy in either breast. There has been no suspicious interval change. IMPRESSION: 1. No mammographic evidence of malignancy. 2. Recommend routine screening mammography in one year. BI-RADS Category 1: Negative Reviewed, dictated and finalized at location A.
== END 2023-04-15 09:29 | disposition home or self-care (01) ==
PROVIDERS: PCP Physician Assistant; Visit Provider Nurse Practitioner Obstetrics & Gynecology
DX: Z12.31 Encounter for screening mammogram for malignant neoplasm of breast (principal)
CPT/HCPCS: 77063; 77067

== ENCOUNTER 2024-04-19 10:16 | Outpatient (CLI) | payer OTHER, SELFPAY ==
--- NOTE | ~2024-04-19 | MM_ITS ---
EXAMINATION: MM screening ashlee BI w ruy HISTORY: Screening TECHNIQUE: Craniocaudal and mediolateral oblique 3-D tomosynthesis images were obtained and synthetic 2-D images were generated. CAD analysis was submitted and interpreted. COMPARISON: Comparison to multiple prior studies sequentially, with oldest reviewed study dated 05/08. BREAST PARENCHYMAL COMPOSITION: Not dense: There are scattered areas of fibroglandular density. FINDINGS: There is no evidence of suspicious mass, calcification, or architectural distortion to sugg est malignancy in either breast. There has been no suspicious interval change. IMPRESSION: 1. No mammographic evidence of malignancy. 2. Recommend routine screening mammography in one year. BI-RADS Category 1: Negative Reviewed, dictated and finalized at location B.
== END 2024-04-19 10:17 | disposition home or self-care (01) ==
PROVIDERS: PCP Physician Assistant; Visit Provider Nurse Practitioner Obstetrics & Gynecology
DX: Z12.31 Encounter for screening mammogram for malignant neoplasm of breast (principal)
CPT/HCPCS: 77063; 77067